=== PATIENT | female | born 1930 | race Caucasian/White ===

== ENCOUNTER 2016-08-05 04:46 | Inpatient (IN) | payer MEDICARE, MEDICAID ==
[~2016-08-05] VITALS: Ht 165.1 cm; Wt 86.2 kg
--- NOTE | ~2016-08-05 | WND ---
ADMIT: 08/05/2016 RM/LOC: 531 [facility] MR#: [id number] [address] [address] WILLIS PUTNAM [facility] [place] [address] Wound Care Clinic SEX: F AGE: 86 : 1930 DATE OF VISIT: 08/06/2016 TIME IN: 0810 hours. TIME OUT: 0820 hours. REASON FOR VISIT: Evaluation of skin, concerns with request for wound care from Dr. Minh Abrams. HISTORY OF PRESENT ILLNESS: This is an 86-year-old female, who lives at home alone. She got up to go the bathroom, using her walker, lost her balance and fell onto her right side. She had immediate pain in her right hip, was unable to get off. This occurred on 08/05/2016. She was seen in the emergency room and diagnosed with a right intertrochanteric femur fracture. Dr. Hesham martinez took her to surgery on 08/05/2016 for a long trochanteric femoral nailing of the right hip. A request was sent to wound care today because of concerns about an open area on her coccyx. This is the first time she has been seen by wound care. PAST MEDICAL HISTORY: 1. Peripheral vascular disease, status post bilateral lower extremity stents, currently on Plavix. 2. Insulin dependent diabetes mellitus. 3. Hypertension. 4. Kidney, bladder, and ovarian cancer. 5. Right intertrochanteric hip fracture recently. 6. COPD. 7. Emphysema. 8. History of left hip fracture, status post pinning. 9. Parkinson disease. 10.Status post single-sided nephrectomy. 11.Status post radiation. 12.Recurrent bladder cancer. 13.She has treatment every 3 months for bladder scraping to manage the cancer. 14.Single ovary removal. ALLERGIES: Sulfonamide antibiotics. CURRENT MEDICATIONS: Per the MAR. Please see the MAR for further details. 1. Apresoline. 2. Caltrate. 3. Lasix. 4. Lopressor. 5. Norvasc. 6. Plavix. 7. Senokot. 8. Therapeutic multivitamins. 9. Zestril. 10.Brovana. ADMIT: 08/05/2016 RM/LOC: 531 [facility] MR#: [id number] [address] [address] NIALLTOREYStephani WILLIS IDNO [address] [place] [address] W[facility] Care Clinic SEX: F AGE: 86 : 1930 11.DuoNeb. 12.Spiriva. 13.Dulcolax suppositories. 14.Heparin. 15.NovoLog 70/30. 16.Ancef. 17.D5 LR. PRN medications: 1. Benadryl. 2. Compazine. 3. Hydrocodone/acetaminophen. 4. Maalox. 5. Milk of magnesia. 6. Surfak. 7. Tylenol. 8. Ultram. 9. Dulcolax suppositories. 10.Fleet enema. 11.Tylenol suppository. 12.Nitrostat. 13.Benadryl. 14.Morphine. 15.D5W. 16.Phenergan. 17.Reglan. 18.Zofran. SOCIAL HISTORY: She lives in [place], [place], in her own home. She has a daughter who lives next door. She smokes cigarettes per day and has done so for greater than 20 years. No alcohol or illicit drug use. She is a retired forming machine tender. She has 11th grade education. FAMILY HISTORY: According to old records showed heart disease, cancer, hypertension, and diabetes. REVIEW OF SYSTEMS: She is examined in her bed, where she is on a pressure relief mattress. She is initially asleep but she did awaken. She is alert and oriented. She denies any recent fever or chills. No nausea or vomiting. No cough, cold, or chest pain. Appetite is increasing. She does have some pain in her right hip, especially with position changes. No discomfort in her bottom. PHYSICAL EXAMINATION: VITAL SIGNS: 99.2, 83, 18, blood pressure 142/64, O2 sats on room air is 96%. Focused exam; body wide skin exam was done. On her right elbow, there is bruising that measures 2 cm x 2.4 cm. No surrounding erythema or induration. Her hands are puffy and she does have tight rings on her ring fingers of both ADMIT: 08/05/2016 RM/LOC: 531 [facility] MR#: [id number] [address] [address] WILLIS PUTNAM [address] [place] [address] Wound Care Clinic SEX: F AGE: 86 : 1930 hands. In her gluteal area, there is a small crease that measures 0.8 x 0.1, which appears to be a slit with a red base. No surrounding erythema or induration. No surrounding discoloration. Slight maceration on the edges. The rest of her exam is negative. ASSESSMENT: 1. Bilateral hand swelling. 2. Moisture associated dermatitis of gluteal crease. TREATMENT PLAN: We will continue on her Isoflex mattress. Requested that her rings be removed to bilateral hands due to the swelling. Chair air cushion when she is up. Aloe to her gluteal crease 4 times a day and p.r.n. stooling. Position off her bottom when she is in bed. Position changes every 2 hours. Thank you for this referral and Wound will follow while she is inpatient. Angela Salvador APRN/ ricky JOB #: [id number] CC: Minh Abrams, Attending Physician Minh Abrams, Family Physician
--- NOTE | 2016-08-06 07:53 | CO ---
ADMIT: 08/05/2016 RM/LOC: 531 [facility] MR#: [id number] [address] [address] NIALLKYLE PRECIADOARERubia SUN [facility] [place] [address] Consultation SEX: F AGE: 86 : 1930 DATE OF CONSULTATION: 08/05/2016 ATTENDING PHYSICIAN: Minh Abrams CONSULTING PHYSICIAN: Angely Dahl MD HISTORY OF PRESENT ILLNESS: This is an 86-year-old female, who lives at home, states that she got to the bathroom, was using her walker and lost her balance, fell on her right side. She states that she had immediate pain in her right hip and was unable to get up. She had a lifeline button around her neck, she pressed, volunteer firefighters came and got her, took her to the hospital. She was overall living at home by herself prior to the fall. Family relative states that the sister lives right next door but overall has been doing great living on her own. PAST MEDICAL HISTORY: Significant for: 1. Peripheral vascular disease. 2. Hypertension. 3. Insulin-dependent diabetes. 4. Previous left hip fracture. ALLERGIES: SULFA IS THE ONLY ONE STATED. PHYSICAL EXAMINATION: GENERAL: Mildly distressed female patient, lying in bed. Alert and oriented, able to answer questions. MUSCULOSKELETAL: Exam of the right lower extremity shows that length is shortened, it is externally rotated. The patient does have some mild palpation to tenderness proximally in femur, very slight internal-external rotation of the femur, it causes pretty significant pain. The patient has generalized swelling throughout the lower extremity, could be due to some diabetes but also inflammation from the fracture. Exam of the left upper extremity as well; left hand is swollen significantly compared to the right hand. No tenderness to palpation anywhere along the ulna, radius, any of the digits in the hand. flexion extension, ulnar radial deviation, negative pain. Extension and flexion of all fingers, also negative for pain. IMAGING: X-ray of the pelvis, right hip, reveals right intertrochanteric displaced femoral fracture. ASSESSMENT AND PLAN: Right now, the patient has right intertrochanteric displaced femur fracture. The patient as well as the patient's family members who were present were seen by Dr. Dahl earlier this morning as well as myself right now. I discussed options with the patient as well as the ADMIT: 08/05/2016 RM/LOC: 531 [facility] MR#: [id number] [address] [address] WILLIS PUTNAM [address] [place] [address] Consultation SEX: F AGE: 86 : 1930 patient's family, and we are looking to go ahead and move forward with the right trochanteric femoral nailing. The patient right now is scheduled for, later this afternoon, with Dr. Dahl. Consent for surgery has been ordered. All the risks and benefits of the procedure have also been explained to the patient and family including but not limited to, infection, nonhealing, blood clots, things of those natures. After discussing the surgical process with the patient and family members, answered any questions they had. Everyone in the room were involved, wants go ahead with the procedure, which I said right now is tentatively scheduled to take place this afternoon with Dr. Dahl if medically cleared and no other concerns come about to that point. The patient and family members were asked to contact us if they had any questions prior to the procedure that is planned. MARI Everett / Angely Dahl MD / modl :23:25 JOB #: [id number] CC: Minh Abrams, Attending Physician Minh Abrams, Family Physician
--- NOTE | 2016-08-09 08:14 | OR ---
ADMIT: 08/05/2016 RM/LOC: 531 [facility] MR#: [id number] [address] [address] WILLIS PUTNAM [address] [place] [address] [place] [address] Operative/Delivery Room Report SEX: F AGE: 86 : 1930 SURGERY DATE: 08/05/2016 SURGEON: Angely Dahl MD PREOPERATIVE DIAGNOSIS: Right hip comminuted peritrochanteric hip fracture. POSTOPERATIVE DIAGNOSIS: Right hip comminuted peritrochanteric hip fracture. PROCEDURE: Long trochanteric femoral nailing, right hip. ANESTHESIA: General. ASSISTED BY: MARI Everett ESTIMATED BLOOD LOSS: 350 mL. COMPLICATIONS: None. SPECIMEN: None. COMPONENTS: Synthes trochanteric femoral nail 12 mm x 130 degrees x 400 mm, 100 mm spiral blade, and a 68 mm distal locking screw. DESCRIPTION OF PROCEDURE: This patient was brought to the operating room after a satisfactory level of anesthesia was achieved. The patient was placed on the fracture table in the supine position. All bony prominences were well padded. Her left lower extremity was abducted, flexed, and positioned in that position with a padded leg tripp. The right lower extremity was placed in traction and a tentative closed reduction was performed. The patient had a markedly comminuted fracture of the hip including a long anterolateral calcar fragment. The lesser trochanter was comminuted, and the entire greater trochanter was comminuted as well. With the displacement particularly on the lateral, I made an extended incision from the base of the trochanter proximally above the tip of the greater trochanter, carried this incision through the subcutaneous tissue, which is fairly deep. Hemostasis was achieved using electrocautery. The iliotibial band was opened, and I then used a guidewire in the greater trochanter opening the trochanter with a reamer. I used a bulb-tipped guidewire then passed this across the fracture site. With the flexion and internal rotation of the proximal fragment, I reduced that with a curved Crego and then used a [place] clamp to hold that fragment in a reduced position. I then reamed distally and measured for a nail, which would give me good fixation in the entire femur. She had had a 12 mm x 400 mm nail on the opposite hip and this actually looked very good on our measurements; therefore, that dania was obtained and seated holding it on the AP was located about the midpatellar level distally and tip of the trochanter proximally. I then used the alignment guide to place a 100 mm spiral blade into the femoral head trying to keep it into a neutral plane on both AP and lateral. I locked the spiral blade proximally. All instruments were then removed proximally and the wound packed with lap sponge, and then with the comminution and some of ADMIT: 08/05/2016 RM/LOC: 531 [facility] MR#: [id number] [address] [place] [phone] [address] PUTNAM [address] [place] [address] Operative/Delivery Room Report SEX: F AGE: 86 : 1930 the distraction at the fracture site, I took traction off and was able to compress the fracture, but this did cause my nail to migrate more distally on the AP about the tip of the inferior pole of the patella. AP and lateral C-arm images demonstrated good position in the distal femur, and using a radiolucent drill through a small stab wound, I then placed a single 68 mm x 5 mm locking bolt distally, and I placed it in the slot in the distal femoral dania near the proximal portion so as not to let the nail migrate any further distally. AP and lateral C-arm images were then obtained of both the fracture proximally and position of the locking screw distally to confirm that we are indeed centered in both AP and lateral and within the nail. Wounds were irrigated and then the iliotibial band closed with interrupted #1 Vicryl, multiple layers of 2-0 Vicryl in the subcutaneous tissue, and then ayden in the skin. A sterile dressing was applied, and the patient was then transferred from the operative suite in stable condition. Angely Dahl MD/ ricky JOB #: [id number] CC: Minh Abrams, Attending Physician Minh Abrams, Family Physician
--- NOTE | 2016-08-11 16:45 | HP ---
ADMIT: 08/05/2016 RM/LOC: 531 [facility] MR#: [id number] [id number] [address] [address] WILL[place] PUTNAM [address] [place] [address] History and Physical SEX: F AGE: 86 : 1930 DATE OF SERVICE: CHIEF COMPLAINT: Right hip pain. HISTORY OF PRESENT ILLNESS: This is an 86-year-old female, who lives in [place], [place], and follows with Dr. Polk in [place], who has a past medical history significant for peripheral vascular disease, status post bilateral lower extremity stents, currently on Plavix; insulin-dependent diabetes mellitus; hypertension; hx of kidney, bladder and ovarian cancer, who was admitted with a right intertrochanteric hip fracture. According to her daughter, she got up around 1:00 a.m. to use the restroom and got her walker caught on the stove on the way to the bathroom. She ended up falling onto her right side and then used her lifeline to call EMS. She was complaining of right-sided hip pain. She was brought to the ER by squad, an x-ray showed a right hip fracture. She denies hitting her head or any loss of consciousness. No chest pain or shortness of breath during this episode. She was given IV Ativan and Dilaudid in the Emergency Department for pain and her pain is now better controlled. PAST MEDICAL HISTORY: 1. Peripheral vascular disease, status post bilateral lower extremity stents, on Plavix. 2. COPD. 3. Emphysema. 4. Insulin-dependent diabetes mellitus. 5. Hypertension. 6. History of left hip fracture, status post pin. 7. Parkinson's disease. 8. History of kidney cancer, status post single-sided nephrectomy. 9. History of ovarian cancer, status post radiation. 10.Recurrent bladder cancer. She sees somebody every 3 months to have her bladder scraped to manage the bladder cancer at this time. She is not on any chemo or radiation. PAST SURGICAL HISTORY: 1. Left hip pinning. 2. Kidney removal. 3. Single ovary removal. 4. Bilateral lower extremity stents. MEDICATIONS: 1. Amlodipine 10 mg one tab daily. 2. Aspirin 81 mg one tab daily. 3. Calcium 600 mg one tab daily. 4. Clopidogrel 75 mg one tab daily. 5. Furosemide 20 mg one tab daily. 6. Humalog 75/25, 100 units, inject 15 units subcu daily. 7. Humalog mix 75/25, 100 units/mL, 10 units subcutaneously at bedtime. 8. Lisinopril 20 mg one tab daily. ADMIT: 08/05/2016 RM/LOC: 531 [facility] MR#: [id number] [address] [address] WILLIS PUTNAM [address] [place] [address] History and Physical SEX: F AGE: 86 : 1930 9. Metoprolol 12.5 mg one tab b.i.d. 10.Tramadol 50 mg one and a half tabs orally every 6 hours as needed for pain. 11.Hydralazine 25 mg one tab twice daily. 12.Stiolto Respimat 2.5 mcg two puffs one time daily. ALLERGIES: NONE. SOCIAL HISTORY: She does live at home alone. She has a daughter, who lives next door. She smokes 6 cigarettes a day and she has smoked for most of her life. She denies any alcohol or illegal drug use. FAMILY HISTORY: Noncontributory. REVIEW OF SYSTEMS: A 10-point review of systems was unable to be obtained due to the patient's grogginess from the Dilaudid and Ativan given in the emergency room. PHYSICAL EXAMINATION: VITAL SIGNS: Blood pressure 165/62, pulse 69, respirations 14, temp is 97.6, saturating 96% on room air. GENERAL: She is sleepy, in no acute distress. HEART: Regular rate and rhythm. No murmur. LUNGS: Diminished throughout. ABDOMEN: Soft, nontender, nondistended. EXTREMITIES: She does have right hip pain to palpation, and 2+ pitting edema in the right lower extremity. LABORATORY DATA: Sodium 140, potassium 4.2, creatinine 1.7, INR is less than 1. White count 11.2, hemoglobin 12.6, platelets 618. IMAGING: Right hip x-ray showed an intertrochanteric right proximal femur fracture. EKG showed normal sinus rhythm. Chest x-ray is pending. ASSESSMENT AND PLAN: 1. Right intertrochanteric proximal femur fracture. Orthopedics has been consulted and will see her today. She is currently n.p.o. We will hold her aspirin and Plavix. She is okayed for surgery at this point in time. 2. Insulin-dependent diabetes mellitus. We will go ahead and continue her ADMIT: 08/05/2016 RM/LOC: 531 [facility] MR#: [id number] [address] [place] [phone] WILLIS PUTNAM [address] [place] [address] History and Physical SEX: F AGE: 86 : 1930 home Humalog and check blood sugars before meals and at bedtime. 3. Chronic obstructive pulmonary disease, emphysema. We will continue her home inhaler and also started incentive spirometry and DuoNebs q.i.d. 4. Peripheral vascular disease. Again, holding her Plavix for surgery today. 5. Single kidney. We will be sure to monitor her creatinine is slightly elevated at 1.7 today. We will be sure to give her IV fluids. 6. Hypertension. Continue home medications. 7. Parkinson's disease. According to daughter, she does not take medicine for this because it makes her nauseous. 8. History of bladder and ovarian kidney cancer. 9. Tobacco abuse. Kerrie Segura DO Resident / Minh Abrams MD / ricky JOB #: [id number] CC: Minh Abrams, Attending Physician Minh Abrams, Family Physician
[2016-08-12] MEDS ORDERED: APRESOLINE-DPS25 MG PO (13:12)
[2016-08-12] MEDS ORDERED: LOPRESSOR DPS12.5 MG PO (13:13)
[2016-08-12] MEDS ORDERED: LEVAQUIN DPS250 MG PO (13:13)
[2016-08-12] MEDS ORDERED: NORVASC DPS10 MG PO (13:13)
[2016-08-12] MEDS ORDERED: CALTRATE-600 D600 MG PO (13:13)
[2016-08-12] MEDS ORDERED: THERAPEUTIC MUL1 TAB PO (13:14)
[2016-08-12] MEDS ORDERED: DUONEB DPS3 ML IH (13:14)
[2016-08-12] MEDS ORDERED: BROVANA15 MCG/2 M IH (13:14)
[2016-08-12] MEDS ORDERED: SENOKOT S1 TAB PO (13:14)
[2016-08-12] MEDS ORDERED: PLAVIX75 MG PO (13:14)
[2016-08-12] MEDS ORDERED: ZESTRIL DPS10 MG PO (13:14)
[2016-08-12] MEDS ORDERED: HEPARIN5000 UNITS SQ (13:15)
[2016-08-12] MEDS ORDERED: SPIRIVA18 MCG IH (13:15)
[2016-08-12] MEDS ORDERED: NOVOLOG MI100 UNITS/ SQ ×2 (13:15→13:16)
[2016-08-12] MEDS ORDERED: NOVOLOG100 UNIT/2 SQ (13:18)
[2016-08-12] MEDS ORDERED: COMPAZINE DPS5 MG PO (13:19)
[2016-08-12] MEDS ORDERED: BENADRYL-DPS25 MG PO (13:19)
[2016-08-12] MEDS ORDERED: GLUTOSE 1537.5 GM PO (13:19)
[2016-08-12] MEDS ORDERED: SURFAK DPS240 MG PO (13:20)
[2016-08-12] MEDS ORDERED: MAALOX DPS30 ML PO (13:20)
[2016-08-12] MEDS ORDERED: HYDROCODON-ACE1 EAC4 PO (13:20)
[2016-08-12] MEDS ORDERED: MILK OF MAGNESI10 ML PO (13:20)
[2016-08-12] MEDS ORDERED: ULTRAM DPS50 MG PO (13:21)
[2016-08-12] MEDS ORDERED: TYLENOL DPS325 MG PO (13:21)
[2016-08-12] MEDS ORDERED: DULCOLAX-DPS10 MG PR (13:22)
[2016-08-12] MEDS ORDERED: GLUCAGON EMERGEN1 MG IM (13:22)
[2016-08-12] MEDS ORDERED: ENEMA READY TO133 ML PR (13:22)
[2016-08-12] MEDS ORDERED: NITROSTAT0.4 MG SL (13:23)
[2016-08-12] MEDS ORDERED: ASA CHILDREN'S81 MG PO (13:24)
[2016-08-12] MEDS ORDERED: LASIX DPS20 MG PO (13:25)
--- NOTE | 2016-08-15 20:32 | ER ---
ADMIT: 08/05/2016 RM/LOC: 531 [facility] MR#: [id number] [address] [address] WILLIS PUTNAM [facility] [place] [address] Emergency Room Report SEX: F AGE: 86 : 1930 DATE: 08/05/2016 CHIEF COMPLAINT: Fall, right hip pain. HISTORY OF PRESENT ILLNESS: The patient is an 86-year-old female, lives at home alone, who states that she got up to use the bathroom and was using her walker when she lost her balance and fell onto her right side. She states she had immediate pain in her right hip, was unable to get up. She denies hitting her head and did not have any loss of consciousness. States she had been feeling fine yesterday and before the fall and denies any complaints of chest pain, shortness of breath, abdominal pain, nausea, vomiting, or change in bowel or bladder function. PAST MEDICAL HISTORY: Significant for peripheral vascular disease, hypertension, insulin-dependent diabetes, and a left hip fracture. MEDICATIONS: See nurse's note. It is noted that she is on Plavix. ALLERGIES: SEE NURSE'S NOTE. SOCIAL HISTORY: Lives at home alone. Denies any smoking, drug, or alcohol use. PHYSICAL EXAMINATION: See T-sheet. Focused exam reveals the patient is unable to range of motion her right hip secondary to pain. She is neurovascularly intact distally in the right lower extremity. She has no other signs of injury. IMAGING: X-ray of pelvis and right hip revealed a right intertrochanteric displaced femur fracture. LABORATORY DATA: CBC is unremarkable other than a white count of 11.2, and elevated platelets of 618. Her chemistry showed that she has an elevated creatinine of 1.7. Her INR is less than 1. ADMIT: 08/05/2016 RM/LOC: 531 [facility] MR#: [id number] [address] [address] WILLIS PUTNAM [address] [place] [address] Emergency Room Report SEX: F AGE: 86 : 1930 EMERGENCY DEPARTMENT COURSE: We got an IV started while the patient was in the ER and she was given Dilaudid, Zofran, and Ativan. She had significant improvement in her pain after the Dilaudid and Ativan. The x-rays did reveal a fracture and I contacted Dr. Dahl, who is on for Orthopedics, who will be consulted on the patient. I also spoke to Dr. Abrams, who is on for [facility] Call as the patient does not have a primary care doctor in the area, she lives in [place]. The patient's pain was significantly improved while in the ER, and she is admitted in stable condition. DIAGNOSES: 1. Right intertrochanteric femur fracture. 2. Peripheral vascular disease. Deni Schmidt MD/ ricky JOB #: [id number] CC: Minh Abrams MD, Attending Physician Minh Abrams MD, Family Physician
--- NOTE | 2016-08-20 17:29 | CO ---
ADMIT: 08/05/2016 RM/LOC: 531 [facility] MR#: [id number] [address] [facility] [address] [place] [phone] [address] PUTNAM [address] [place] [id number] Consultation SEX: F AGE: 86 : 1930 DATE OF CONSULTATION: 08/07/2016 ATTENDING PHYSICIAN: Minh Abrams CONSULTING PHYSICIAN: Casey Abrams MD REASON FOR CONSULT: Elevated troponin. HISTORY OF PRESENT ILLNESS: Neyda is a very nice 86-year-old lady. I do not think that she has a cardiac or coronary history, but she does have peripheral vascular disease and is a smoker. She has had previous lower extremity stenting. She lives independently in [place], [place]. Her daughter just lives right around the corner and checks on her routinely but she does stay in her own home alone at night. She was admitted after she was found to have a right hip fracture. It was during the night before admission that she was using her walker to go the bathroom. She got caught on a cabinet or the stove and she fell on her right side. She was able to contact her daughter via [employer]. She was brought to the emergency room and found to have her right hip fracture. She underwent trochanteric femoral nailing of the right hip on August 05, 2016. She did not have any immediate cardiac complications. Apparently early this morning, she was complaining of some right shoulder pain, that led to checking her cardiac enzymes. Her CK is almost 800, her MB is normal, and her troponin was just equivocal at 0.109. When I talked to her, she has shoulder pain with movement. She does not have any left-sided chest discomfort. She is joking with her family and smiling, in no acute distress. Her EKG shows right bundle-branch block but no acute ischemic EKG changes. ALLERGIES: TO SULFA. HOME MEDICATIONS: Include: 1. Amlodipine 10 daily. 2. Metoprolol 12.5 b.i.d. 3. Lisinopril 20 daily. 4. Plavix 75 daily. 5. Lasix 10 mg b.i.d. 6. Hydralazine 25 b.i.d. 7. Tramadol 75 every 6 hours. 8. Humalog insulin. 9. Aspirin 81 daily. 10.Calcium 600 daily. 11.Multivitamin daily. ILLNESSES: Include: 1. Diabetes. 2. Peripheral vascular disease. ADMIT: 08/05/2016 RM/LOC: 531 [facility] MR#: [id number] [address] [phone] [address]IS PUTNAM [address] [place] [id number] Consultation SEX: F AGE: 86 : 1930 3. Hypertension. 4. History of kidney, bladder, and ovarian cancer. 5. COPD. 6. Possible Parkinson disease. PAST SURGICAL HISTORY: Includes: 1. Previous left hip fracture, status post pinning. 2. She has had unilateral kidney removed or nephrectomy. 3. She has had a unilateral oophorectomy. 4. She has had bilateral lower extremity stents. SOCIAL HISTORY: She continues to smoke cigarettes. She lives in [place], close to family. She denies alcohol or drug use. FAMILY HISTORY: Reviewed and noncontributory. REVIEW OF SYSTEMS: Due to her difficulty hearing, I attempted a full 12-point review of systems and it was essentially noncontributory other than that mentioned on the HPI. She has not had any recent palpitations or syncope. She does not have a history of rheumatic fever. No recent angina. PHYSICAL EXAMINATION: VITAL SIGNS: Her blood pressure is 143/57, her pulse is 88 and regular, respirations 18. She is afebrile. GENERAL: She is pale but she is alert, sitting up in the chair. She is accompanied by her grandson and a great granddaughter. She is laughing and joking with them. She is in no acute distress. EYES: Sclerae clear. No xanthelasmas. ENT: There is left-sided carotid bruit. Oral mucosa is pink and moist. No jugular venous distention CHEST: Prolonged expiratory phase but no wheezes, rhonchi, or crackles. I question a bony deformity over her right shoulder in her right clavicle. HEART: Distant and regular. No significant murmurs, rubs, or gallops. ABDOMEN: Soft and nontender. EXTREMITIES: Trivial amount of edema. Distal pulses are decreased, but intact. MUSCULOSKELETAL: She has had recent right hip fracture and she has it elevated in the chair. PSYCHIATRIC: Alert and oriented. Mood and affect are appropriate. She is very hard of hearing. LABORATORY DATA: Her creatinine is 1.6, glucose is 241, potassium is 4.6. CK is 799. Her MB is 3.2 with relative index of less than 1. Her troponin is 0.174. White count is 7.6, hemoglobin 9.5, and platelet count 470,000. IMPRESSION: 1. Right hip fracture after recent fall. 2. Equivocal troponin. ADMIT: 08/05/2016 RM/LOC: 531 [facility] MR#: [id number] [address] [place] [phone] WILLIS PUTNAM [address] [place] [address] Consultation SEX: F AGE: 86 : 1930 3. Noncardiac pain. 4. Right shoulder pain. 5. Diabetes. 6. History of peripheral vascular disease. 7. Unilateral kidney with chronic kidney disease. 8. Ongoing tobacco abuse. RECOMMENDATIONS: Her troponin is secondary and not due to an acute coronary syndrome or myocardial infarction. Most likely, it is due to her recent physiologic stress of her surgery in the setting of chronic kidney disease and anemia. She has right shoulder pain and not angina. I would suggest further evaluation of possible shoulder injury and no further cardiac evaluation is necessary at this point. Thank you for this consultation. Casey Abrams MD/ ricky JOB #: [id number] CC: Minh Abrams, Attending Physician Minh Abrams, Family Physician
--- NOTE | 2016-08-22 14:52 | DS ---
ADMIT: 08/05/2016 RM/LOC: 531 [facility] MR#: [id number] [address] [phone] WILLIS PUTNAM [address] [place] [address] Discharge Summary SEX: F AGE: 86 : 1930 ADMISSION DATE: 08/05/2016 DISCHARGE DATE: 08/11/2016 DISCHARGE DIAGNOSES: 1. Right intertrochanteric proximal femur fracture, status post nailing. 2. Peripheral vascular disease, status post bilateral lower extremity stents. 3. Diabetes. 4. Hypertension. 5. COPD (chronic obstructive pulmonary disease). 6. Emphysema. 7. Hypertension. 8. Parkinson's disease. 9. Previous left hip fracture. 10.Chronic kidney disease due to solitary kidney. 11.History of multiple cancers including bladder, kidney and ovarian. CONSULTS: 1. Orthopedics. 2. Cardiology. 3. Social work. 4. Urology. 5. Wound Care. HISTORY OF PRESENT ILLNESS: This is an 86-year-old female, who lives in [place], [place] and follows with Dr. Polk in [place], who was brought to the emergency room after a fall in her home. According to the patient, she got upper 0100 hours to use the restroom and tripped when using her walker and fell on her right side. She used her [employer] to call EMS. When she was brought to the ER x-ray showed a right hip fracture. She denied any loss of consciousness or head injury. No chest pain or shortness of breath during the episode. She was given IV Ativan and Dilaudid in the ER for pain. HOSPITAL COURSE: On day one, she was admitted and given medicines for pain control. Orthopedics was consulted and planned for surgery later in the afternoon. She was also noted to have a bed sore around her coccyx and so wound care was consulted for management of that as well. She did well during her surgery but later started complaining of some shoulder pain. Cardiac enzymes were checked and she was noted to have an elevated troponin and so Cardiology was consulted. After their consult, they felt that her elevated troponin had nothing to do with the cardiac issue and was more just a musculoskeletal issue and suggested we treat the shoulder pain medically. Twenty-four hours after surgery, she was started on a heparin drip and her Plavix was restarted. She was having some issues with urinary retention and so a UA was ordered that showed 2+ leukocyte esterase, and 30 white cells. She was started on Zosyn at that time and Urology was also consulted who suggested inserting a Dukes for two weeks and then following up with them as an outpatient. She was noted to be anemic during her hospital stay with a hemoglobin that dropped down to 7.8. A workup was done and she was found to ADMIT: 08/05/2016 RM/LOC: 531 [facility] MR#: [id number] [address] [place] [phone] [address] PUTNAM [address] [place] [id number] Discharge Summary SEX: F AGE: 86 : 1930 be iron deficient but no transfusion was needed. She was ultimately discharged on hospital day eight to the [facility] care home unit on oral Levaquin. DISCHARGE MEDICATIONS: 1. Apresoline 25 mg p.o. b.i.d. 2. Caltrate 600 mg p.o. daily. 3. Levaquin 250 mg one tab daily x3 days. 4. Lopressor 12.5 mg p.o. b.i.d. 5. Norvasc 10 mg p.o. daily. 6. Plavix 75 mg p.o. daily. 7. Senokot one tab p.o. b.i.d. 8. Multivitamin one tab p.o. daily. 9. Zestril 10 mg p.o. daily. 10.Brovana one inhalation b.i.d. 11.DuoNeb 3 mL inhaled q.i.d. 12.Spiriva 18 mcg inhaled daily. 13.Heparin 5000 units subcu b.i.d. for two weeks. 14.NovoLog 70/30 15 units subcu every morning. 15.NovoLog 70/30 10 units subcu at night. 16.NovoLog 100 units low-dose sliding scale insulin a.c. and every night. 17.Benadryl 25 mg p.o. q.6h p.r.n. 18.Compazine 5 mg p.o. q.6h p.r.n. 19.Glucose 75 g p.o. as needed. 20.Hydrocodone 5/325, 1-2 tabs p.o. q.6h p.r.n. 21.Maalox 30 mL p.o. q.6h p.r.n. 22.Milk of magnesia 10 mL p.o. q. p.r.n. 23.Surfak 240 mg p.o. b.i.d. p.r.n. 24.Tylenol 650 mg p.o. q.4 p.r.n. 25.Ultram 50 mg, 1-2 tabs p.o. q.6h p.r.n. 26.Glucagon 1 mg IM as needed. ADMIT: 08/05/2016 RM/LOC: 531 [facility] MR#: [id number] 2620 [facility] [address] [place] [phone] [address]IS PUTNAM [address] [place] [id number] Discharge Summary SEX: F AGE: 86 : 1930 27.Dulcolax 10 mg per rectal p.r.n. 28.Fleet enemas p.r.n. 29.Nitrostat 0.4 mg sublingual q.5h minutes x3 p.r.n. DISCHARGE INSTRUCTIONS: She was discharged to the [facility]. She has a followup appointment with the [facility] doctor in 7-10 days with a CBC, BMP and UA. Her appointment was made for August 19 at 10 o'clock. She also has an ortho followup on 08/17/2016 at 9 o'clock and a followup Dr. Arredondo on 08/17/2016 at 11 o'clock. She is to have PT and OT while at the care home unit. She is to be nonweightbearing on her right lower extremity. Diet is as tolerated. She is a DNR/DNI. Kerrie Segura DO Resident / Minh Abrams MD / vdg JOB #: [id number] CC: Minh Abrams MD, Attending Physician Minh Abrams MD, Family Physician
== END 2016-08-11 11:05 | DRG 481 ==
LOC: ER 04:46 → 5MS 06:36
PROVIDERS: ADMIT Family Medicine
PROC: 0QS636Z Reposition Right Upper Femur with Intramedullary Internal Fixation Device, Percutaneous Approach (ICD-10-PCS; principal; 2016-08-05)
DX: S72.141A Displaced intertrochanteric fracture of right femur, initial encounter for closed fracture (principal); N17.9 Acute kidney failure, unspecified; E11.22 Type 2 diabetes mellitus with diabetic chronic kidney disease; G20 Parkinson's disease; J44.9 Chronic obstructive pulmonary disease, unspecified; D62 Acute posthemorrhagic anemia; I10 Essential (primary) hypertension; C67.9 Malignant neoplasm of bladder, unspecified; M25.511 Pain in right shoulder; R79.89 Other specified abnormal findings of blood chemistry; N18.9 Chronic kidney disease, unspecified; I45.10 Unspecified right bundle-branch block; I73.9 Peripheral vascular disease, unspecified; W19.XXXA Unspecified fall, initial encounter; F17.210 Nicotine dependence, cigarettes, uncomplicated; Z79.4 Long term (current) use of insulin; Z79.02 Long term (current) use of antithrombotics/antiplatelets; Z95.820 Peripheral vascular angioplasty status with implants and grafts; Z85.528 Personal history of other malignant neoplasm of kidney; Z85.43 Personal history of malignant neoplasm of ovary; Z90.5 Acquired absence of kidney; Z79.82 Long term (current) use of aspirin; Z66 Do not resuscitate